=== PATIENT | female | born 1955 | race Caucasian/White ===

== ENCOUNTER 2018-12-03 01:02 | Inpatient (IN) | payer OTHER ==
[~2018-12-03] VITALS: Ht 154.9 cm; Wt 72.0 kg
[~2018-12-03 01:02] MED LIST: LANTI SQ; PROAIR HFA0.09 MG/Ac IH
[2018-12-03 01:08] VITALS: Ht 154.9 cm; Wt 72.0 kg
[2018-12-03 01:55] LABS: BASOPHIL % 0.6 % (0-2); PLATELET COUNT 265 x10^3mcL (130-400)
[2018-12-03 01:58] LABS: RED CELL DISTRIBUTION WIDTH 16.3 % (11.5-14.5)
[2018-12-03 02:05] LABS: BILIRUBIN TOTAL 0.63 mg/dL (0.20-1.00); CALCIUM 8.8 mg/dL (8.5-10.1); CARBON DIOXIDE 29.4 mmol/L (21-32); POTASSIUM SERUM 4.7 mmol/L (3.5-5.1); TOTAL PROTEIN, SERUM 7.7 g/dL (6.4-8.2)
[2018-12-03 02:13] LABS: CREATININE SERUM 4.6 mg/dL (0.6-1.0)
[2018-12-03] MEDS ORDERED: PRA40 PO (04:41)
[2018-12-03] MEDS ORDERED: ALLERGY10 M2 PO (04:42)
[2018-12-03] MEDS ORDERED: PROCARDIA XL90 MG PO (04:43)
[2018-12-03] MEDS ORDERED: COZAAR50 M1 PO (04:43)
[2018-12-03] MEDS ORDERED: HYDRALAZINE HCL25 MG PO (04:45)
[2018-12-03] MEDS ORDERED: CALCIUM ACETAT667 M2 PO (04:46)
[2018-12-03] MEDS ORDERED: SYNTHROID0.112 MG PO (04:46)
[2018-12-03] MEDS ORDERED: NEPHRO-VITE RX1 TAB PO (04:47)
[2018-12-03] MEDS ORDERED: CLOPIDOGREL75 M1 PO (04:48)
[2018-12-03 04:56] LABS: CHOLESTEROL/HDL RATIO 2.9
[2018-12-03 06:13] VITALS: BP 183/63
[2018-12-03 07:00] VITALS: BP 148/47
[2018-12-03 09:37] VITALS: BP 136/49
[2018-12-03 12:42] VITALS: BP 104/54
[2018-12-03 18:32] VITALS: BP 157/62
[2018-12-03 21:13] VITALS: BP 116/64
[2018-12-04 05:23] VITALS: BP 127/50
[2018-12-04 05:40] LABS: CALCIUM 8.6 mg/dL (8.5-10.1); CARBON DIOXIDE 27.8 mmol/L (21-32)
[2018-12-04 05:44] LABS: MAGNESIUM 2.2 mg/dL (1.8-2.4); PHOSPHOROUS 6.8 mg/dL (2.5-4.9)
[2018-12-04 05:57] LABS: POTASSIUM SERUM 5.7 mmol/L (3.5-5.1)
[2018-12-04 05:58] LABS: CREATININE SERUM 7.3 mg/dL (0.6-1.0)
[2018-12-04 07:53] VITALS: BP 110/46
[2018-12-04 08:06] LABS: BASOPHIL % 0.1 % (0-2); PLATELET COUNT 193 x10^3mcL (130-400)
[2018-12-04 08:07] LABS: RED CELL DISTRIBUTION WIDTH 16.2 % (11.5-14.5)
[2018-12-04 12:01] VITALS: BP 123/48
[2018-12-04 16:19] VITALS: BP 136/61
[2018-12-04 20:53] VITALS: BP 112/47
[2018-12-05 05:33] VITALS: BP 128/52
[2018-12-05 07:49] VITALS: BP 123/53
[2018-12-05 08:03] LABS: BASOPHIL % 0.1 % (0-2); PLATELET COUNT 181 x10^3mcL (130-400)
[2018-12-05 08:05] LABS: RED CELL DISTRIBUTION WIDTH 15.2 % (11.5-14.5)
[2018-12-05 08:14] LABS: CALCIUM 8.8 mg/dL (8.5-10.1); CARBON DIOXIDE 31.4 mmol/L (21-32); POTASSIUM SERUM 4.2 mmol/L (3.5-5.1)
[2018-12-05 08:21] LABS: CREATININE SERUM 5.6 mg/dL (0.6-1.0)
[2018-12-05 12:25] VITALS: BP 112/49
[2018-12-05 16:53] VITALS: BP 115/53
[2018-12-05 20:15] VITALS: BP 100/83; BP 115/69
[2018-12-06 06:00] VITALS: BP 128/52
[2018-12-06 06:36] LABS: BASOPHIL % 0.6 % (0-2); PLATELET COUNT 197 x10^3mcL (130-400)
[2018-12-06 06:39] LABS: CALCIUM 9.1 mg/dL (8.5-10.1); CARBON DIOXIDE 29.6 mmol/L (21-32); POTASSIUM SERUM 3.9 mmol/L (3.5-5.1)
[2018-12-06 06:43] LABS: RED CELL DISTRIBUTION WIDTH 15.3 % (11.5-14.5)
[2018-12-06 06:46] LABS: CREATININE SERUM 7.8 mg/dL (0.6-1.0)
[2018-12-06 08:15] VITALS: BP 128/55
[2018-12-06 11:45] VITALS: BP 93/53
[2018-12-06 16:22] VITALS: BP 104/75
[2018-12-06 21:23] VITALS: BP 137/56
[2018-12-07 05:36] VITALS: BP 153/50
[2018-12-07 08:30] VITALS: BP 124/80
[2018-12-07 12:30] VITALS: BP 127/51
[2018-12-07 17:00] VITALS: BP 123/58
[2018-12-07 20:32] VITALS: BP 100/80
[2018-12-08 06:07] VITALS: BP 116/54
[2018-12-08 09:39] VITALS: BP 138/63
[2018-12-08 11:10] VITALS: BP 127/64
[2018-12-08 13:28] VITALS: BP 134/43
[2018-12-08] MEDS ORDERED: PROTONIX20 MG PO (14:22)
[2018-12-08 14:49] VITALS: BP 134/43
== END 2018-12-08 15:53 | disposition home or self-care (01) | DRG 444 ==
LOC: ED 01:02 → DU 04:18 → IC 12-08 11:05 → DU 12-08 12:08
PROVIDERS: Emergency Medicine; Family Medicine; Internal Medicine; ADMIT Internal Medicine
PROC: 0DBL8ZX Excision of Transverse Colon, Via Natural or Artificial Opening Endoscopic, Diagnostic (ICD-10-PCS; 2018-12-08)
PROC: 0DB78ZX Excision of Stomach, Pylorus, Via Natural or Artificial Opening Endoscopic, Diagnostic (ICD-10-PCS; principal; 2018-12-08 10:30)
PROC: 0DBH8ZX Excision of Cecum, Via Natural or Artificial Opening Endoscopic, Diagnostic (ICD-10-PCS; 2018-12-08 10:30)
DX: K80.00 Calculus of gallbladder with acute cholecystitis without obstruction (principal); N18.6 End stage renal disease; K63.3 Ulcer of intestine; K55.8 Other vascular disorders of intestine; I12.0 Hypertensive chronic kidney disease with stage 5 chronic kidney disease or end stage renal disease; K29.70 Gastritis, unspecified, without bleeding; E10.22 Type 1 diabetes mellitus with diabetic chronic kidney disease; E78.5 Hyperlipidemia, unspecified; E03.9 Hypothyroidism, unspecified; J44.9 Chronic obstructive pulmonary disease, unspecified; I25.10 Atherosclerotic heart disease of native coronary artery without angina pectoris; I25.2 Old myocardial infarction; Z99.2 Dependence on renal dialysis; Z79.4 Long term (current) use of insulin; Z68.26 Body mass index [BMI] 26.0-26.9, adult; Z95.1 Presence of aortocoronary bypass graft; Z95.5 Presence of coronary angioplasty implant and graft
CPT/HCPCS: 43235; 45378; 78226; 82962; 83880; A9537; J1200; J1610; J1644; J2250; J2270; J2310; J2405; J2543; J3010; J3490; J7030; Q0092

== ENCOUNTER 2020-10-15 06:03 | Emergency (ER) | payer OTHER, BC ==
[~2020-10-15] VITALS: Ht 154.9 cm; Wt 65.8 kg
[~2020-10-15 06:03] MED LIST changes: +ALLERGY10 M2 PO; +ASPIR 8181 MG PO; +ATORVASTATIN CA80 M1 PO; +BRILINTA90 M1 PO; +CALCIUM ACETAT667 M2 PO; +CLONIDINE HCL0.3 MG PO; +CLOPIDOGREL75 M1 PO; +COZAAR50 M1 PO; +HYDRALAZINE HCL25 MG PO; +HYDRALAZINE HCL50 MG PO; +MEN'S ROGAINE5% PO; +MIN10 PO; +NEPHRO-VITE RX1 TAB PO; +NEPHRO-VITE VITA1 EA; +PHOS PO; +PRA40 PO; +PROCARDIA XL90 MG PO; +PROTONIX20 MG PO; +SYNTHROID0.112 MG PO
[2020-10-15 06:15] VITALS: Ht 154.9 cm; Wt 65.8 kg
[2020-10-15 08:04] LABS: BASOPHIL % 0.3 % (0-2); RED CELL DISTRIBUTION WIDTH 14.2 % (11.5-14.5)
[2020-10-15 08:42] LABS: BILIRUBIN TOTAL 0.7 mg/dL (0.20-1.00); CARBON DIOXIDE 27.3 mmol/L (21-32)
[2020-10-15 08:50] LABS: ALBUMIN 3.3 g/dL (3.4-5.0); CREATININE SERUM 5.8 mg/dL (0.6-1.0); TOTAL PROTEIN, SERUM 5.9 g/dL (6.4-8.2)
[2020-10-15 09:46] LABS: rbc morphology (normal/abnorm) ABNORMAL (NORMAL)
[2020-10-15 09:47] LABS: PLATELET COUNT 202 x10^3mcL (130-400)
[2020-10-15 10:35] VITALS: BP 98/67
== END 2020-10-15 10:35 | disposition short-term general hospital (02) ==
LOC: ED 06:03
PROVIDERS: Emergency Medicine
DX: S36.899A Unspecified injury of other intra-abdominal organs, initial encounter (principal); E11.22 Type 2 diabetes mellitus with diabetic chronic kidney disease; I12.0 Hypertensive chronic kidney disease with stage 5 chronic kidney disease or end stage renal disease; N18.6 End stage renal disease; J44.9 Chronic obstructive pulmonary disease, unspecified; D50.0 Iron deficiency anemia secondary to blood loss (chronic); Z99.2 Dependence on renal dialysis; X58.XXXA Exposure to other specified factors, initial encounter; Y93.89 Activity, other specified; Y92.89 Other specified places as the place of occurrence of the external cause; Y99.8 Other external cause status
CPT/HCPCS: 82962; J2270; J2405; J7030; J7040; J7050; P9016